=== PATIENT | female | born 1985 | race Hispanic/Latino ===

== ENCOUNTER 2020-11-30 09:23 | Outpatient (CLI) | payer BC | END 2020-11-30 09:24 | disposition home or self-care (01) | LOC: BICULT 09:23 | PROVIDERS: ATTEND Nurse Practitioner | DX: O09.93 Supervision of high risk pregnancy, unspecified, third trimester (principal); O44.43 Low lying placenta NOS or without hemorrhage, third trimester; Z3A.30 30 weeks gestation of pregnancy | CPT/HCPCS: 76805 ==

== ENCOUNTER 2023-08-09 07:43 | Outpatient (CLI) | payer OTHER | END 2023-08-09 07:44 | disposition home or self-care (01) | LOC: BICULT 07:43 | PROVIDERS: ATTEND Nurse Practitioner Women's Health | DX: O09.891 Supervision of other high risk pregnancies, first trimester (principal); Z3A.29 29 weeks gestation of pregnancy | CPT/HCPCS: 76805 ==